=== PATIENT | female | born 1965 | race Caucasian/White ===

== ENCOUNTER 2016-12-01 13:13 | Emergency (ER) | payer MEDICAID ==
[~2016-12-01] VITALS: Ht 170.2 cm; Wt 80.0 kg
[2016-12-01] MEDS ORDERED: KETOROLAC 60MG/2ML VIAL IM ONE (14:45)
[2016-12-01 17:40] VITALS: BP 125/80
== END 2016-12-01 17:43 | disposition home or self-care (01) ==
LOC: ER 13:43
DX: M25.512 Pain in left shoulder (principal); M79.602 Pain in left arm; M25.522 Pain in left elbow; V49.40XA Driver injured in collision with unspecified motor vehicles in traffic accident, initial encounter; Y93.89 Activity, other specified; Y92.410 Unspecified street and highway as the place of occurrence of the external cause; Z87.19 Personal history of other diseases of the digestive system
CPT/HCPCS: 73000; 73030; 73060; 73080; 96372; 99284; J1885; Z7610